=== PATIENT | female | born 1950 | race Caucasian/White ===

== ENCOUNTER 2018-09-10 07:24 | Day surgery (SDC) | payer MEDICARE ==
[2018-09-07 16:42] VITALS: BMI 26.0
[2018-09-10] MEDS ORDERED: Sodium Chloride 0.9% 1,000 ML IV SCH (09:45)
[2018-09-10 11:02] VITALS: TEMP 98
[2018-09-10 11:11] VITALS: BP 126/63; PULSE 63; RESP 16; O2SAT 99
== END 2018-09-10 11:00 | disposition home or self-care (01) ==
LOC: ENDO 07:24
PROVIDERS: ATTEND Specialist
DX: Z12.11 Encounter for screening for malignant neoplasm of colon (principal); K63.5 Polyp of colon; Z86.010 Personal history of colon polyps; K64.8 Other hemorrhoids; E11.9 Type 2 diabetes mellitus without complications
CPT/HCPCS: 45380; 88305; J2001; J7030

== ENCOUNTER 2018-09-17 13:58 | Inpatient (IN) | payer MEDICARE ==
[2018-09-17 13:59] VITALS: BMI 26.0
[2018-09-17] MEDS ORDERED: Morphine 4 mg/ml ISec IVP STA (14:41)
--- NOTE | 2018-09-17 14:50 | ED PDOC ---
Arrival/HPI - General Chief Complaint: Abdominal Pain Time Seen by Provider: 09/17/18 14:14 Historian: Patient - History of Present Illness Narrative History of Present Illness (Text): 09/17/18 14:35 67 year old female, whose past medical history includes allergy to Amoxicillin (causes rashes), Eczema, recent colonoscopy, appendectomy, , diabetes, and kidney stone, who presents to the Emergency department complaining of bloating of stomach and back pain for past 3 days. Patient states she had a colonoscopy done on 09/10/[address] Vargas. Patient notes she has not gone to visit Dr. Vargas again since he asked her to return in 3-4 weeks. Patient states she went to her Insurance Sales Producer this week and blood was found in her urine, but no bacteria. Patient notes urine output changes, nausea and poor appetite. Patient denies any recent falls, fevers, rashes, vaginal discharge, stool changes, or any other complaints. PMD: Charan Vo Time/Duration: > week (Pt notes bloating of stomach and back pains for past 3 days ) Symptom Onset: Sudden Symptom Course: Unchanged Activities at Onset: Light Past Medical History - Provider Review Nursing Documentation Reviewed: Yes - Infectious Disease Hx of Infectious Diseases: None - Reproductive Menopause: Yes - Cardiac Hx Pacemaker: No - Pulmonary Hx Respiratory Disorders: No - Neurological Hx Paralysis: No - HEENT Hx HEENT Disorder: No - Renal Hx Renal Disorder: No Hx Kidney Stones: Yes (6 MM KIDNEY STONE 06-19-16) - Endocrine/Metabolic Hx Endocrine Disorders: Yes Hx Diabetes Mellitus Type 2: Yes - Hematological/Oncological Hx Blood Transfusions: No - Integumentary Hx Dermatological Disorder: No - Musculoskeletal/Rheumatological Hx Musculoskeletal Disorders: Yes - Gastrointestinal Hx Gastrointestinal Disorders: No (APPENDECTOMY) - Genitourinary/Gynecological Hx Genitourinary Disorders: Yes (CEASEREAN X 1) - Psychiatric Hx Psychophysiologic Disorder: No Hx Substance Use: No - Surgical History Hx Appendectomy: Yes Hx Section: Yes Hx Eye Surgery: Yes (FOR GLAUCOMA) - Anesthesia Hx Anesthesia Reactions: No Hx Malignant Hyperthermia: No - Suicidal Assessment Feels Threatened In Home Enviroment: No Family/Social History - Physician Review Nursing Documentation Reviewed: Yes Family/Social History: Unknown Family HX Smoking Status: Never Smoked Hx Alcohol Use: No Hx Substance Use: No Allergies/Home Meds Allergies/Adverse Reactions: Allergies amoxicillin Allergy (Severe, Verified 06/25/16 07:48) ITCHING Home Medications: Home Meds Medication Instructions Recorded Confirmed Ascorbic Acid [Vitamin C] 500 mg PO DAILY 06/30/17 09/10/18 Cyanocobalamin [Vitamin B12 1000 1 tab PO DAILY 06/30/17 09/10/18 mcg Tab] [place]-3 Fatty Acids/Fish Oil [Fish 1 cap PO DAILY 06/30/17 09/10/18 Oil 1,000 mg Capsule] Peg 400/Hypromellose/Glycerin [Eye 1 drop OU BID 06/30/17 09/10/18 Drop Tears] RX: Vitamin E 400 unit PO DAILY 06/30/17 09/10/18 Ubidecarenone [Co Q10] 200 mg PO DAILY 06/30/17 09/10/18 metFORMIN [glucOPHAGE] 500 mg PO DAILY 06/30/17 09/10/18 Review of Systems - Physician Review All systems were reviewed & negative as marked: Yes - Review of Systems Constitutional: Normal. absent: Fevers Eyes: Normal. absent: Vision Changes, Photophobia ENT: Normal. absent: Hearing Changes, Tinnitus Gastrointestinal: Nausea, Appetite Changes, Other (Pt notes abdominal bloating for past 3 days). absent: Normal, Stool Changes Genitourinary Female: absent: Normal, Vaginal Discharge Musculoskeletal: Back Pain (Pt notes back pain for past 3 days). absent: Normal Skin: Normal. absent: Rash Psychiatric: Normal. absent: Anxiety, Depression Physical Exam Vital Signs Reviewed: Yes Vital Signs Temp Pulse Resp BP Pulse Ox 09/17/18 14:19 98.4 F 60 18 149/82 97 Temperature: Afebrile Blood Pressure: Normal Pulse: Regular Respiratory Rate: Normal Appearance: Positive for: Well-Appearing, Non-Toxic, Uncomfortable Pain Distress: Mild Mental Status: Positive for: Alert and Oriented X 3 - Systems Exam Head: Present: Atraumatic, Normocephalic Pupils: Present: PERRL Extroacular Muscles: Present: EOMI Conjunctiva: Present: Normal Mouth: Present: Moist Mucous Membranes Neck: Present: Normal Range of Motion Respiratory/Chest: Present: Clear to Auscultation, Good Air Exchange. No: Respiratory Distress, Accessory Muscle Use Cardiovascular: Present: Regular Rate and Rhythm, Normal S1, S2. No: Murmurs Abdomen: Present: Distention. No: Tenderness Back: Present: Normal Inspection Upper Extremity: Present: Normal Inspection. No: Cyanosis, Edema Lower Extremity: Present: Normal Inspection. No: Edema Neurological: Present: GCS=15, CN II-XII Intact, Speech Normal Skin: Present: Warm, Dry, Normal Color. No: Rashes Psychiatric: Present: Alert, Oriented x 3, Normal Insight, Normal Concentration Medical Decision Making ED Course and Treatment: 09/17/18 14:35 Impression: 67 year old female who presents to the Emergency department complaining of bloating of stomach and back pain for past 3 days. Likely kidney stone vs perf? However abdomen non-ttp and very well appearing. Likely kidney stone given hx of microscopic hematuria, flank pain, abd pain. Will seek CT. Plan: -- CT of Abdomen/Pelvis -- EKG -- Labs -- Morphine -- IV fluids -- Zofran Inj -- Urinalysis -- Reassess and disposition Progress Notes: 09/17/18 17:47 CT of Abdomen/Pelvis reviewed by radiologist, shows: IMPRESSION: 4 x 6 mm obstructing calculus at the distal right ureter near the UVJ with moderate proximal hydroureter and hydronephrosis. 2.5 x 2.3 cm right uterine mass possibly fibroid. Suspected right adnexal cyst. Pelvic ultrasound may be considered for further evaluation if indicated. Additional findings as above. 09/17/18 18:36 Cr unremarkable UA largely unremarkable: no urinary complaints other than microscopic hematuria. Per Dr. Glynn- URO (covering for Dr. Zheng)- we are to admit to uro special education paraeducator Dr. Vargas- MED does not admit to [facility] appreciate consult w/ Dr. Kimberly Sam- URO: to admit to his service and send him CT w/ Face sheet. We are to admit to medicine appreciate consult w/ Dr. Mai Deshpande- MED: to admit to Dr. Hatfield service. Pt in NAD, agreeable to plan. - RAD Interpretation Radiology Orders: 09/17/18 14:37 ABDOMEN & PELVIS [ABD & PELVIS IV CONTRAST ONLY] [CT] Stat - EKG Interpretation EKG Interpretation (Text): 09/17/18 EKG: Ordered, reviewed, and independently interpreted the EKG. Rate : 60 BPM Rhythm : NSR Interpretation : No STEMI Interpreted by ED Physician: Yes Type: 12 lead EKG - Medication Orders Current Medication Orders: Sodium Chloride (Sodium Chloride 0.9%) 1,000 mls @ 100 mls/hr IV .Q10H YOANA Discontinued Medications Morphine Sulfate (Morphine) 4 mg IVP STAT STA Stop: 09/17/18 14:42 Ondansetron HCl (Zofran Inj) 4 mg IVP STAT STA Stop: 09/17/18 14:42 - Scribe Statement The provider has reviewed the documentation as recorded by the Donnaibjimbo Dean All medical record entries made by the Donnaibjimbo were at my direction and personally dictated by me. I have reviewed the chart and agree that the record accurately reflects my personal performance of the history, physical exam, medical decision making, and the department course for this patient. I have also personally directed, reviewed, and agree with the discharge instructions and disposition. Disposition/Present on Arrival - Present on Arrival Any Indicators Present on Arrival: No History of DVT/PE: No History of Uncontrolled Diabetes: No Urinary Catheter: No History of Decub. Ulcer: No History Surgical Site Infection Following: None - Disposition Have Diagnosis and Disposition been Completed?: Yes Diagnosis: Nephrolithiasis Disposition Time: 18:00 Patient Problems: Current Active Problems Problem Status Onset Nephrolithiasis Acute Condition: GOOD
[2018-09-17] MEDS: Sodium Chloride 0.9% 1,000 ML IV SCH (15:10)
[2018-09-17 15:15] LABS: BASO # 0.02 K/mm3 (0.0-2.0); BASO % 0.2 % (0.0-3.0); EOS % 0.2 % (1.5-5.0); GRAN # 9.2 (1.4-6.5); GRAN % 80.1 % (50.0-68.0); HEMOGLOBIN 14.1 g/dL (12.0-16.0); LYMPH # 1.6 (1.2-3.4); LYMPH % 13.9 % (22.0-35.0); MEAN CELL VOLUME 90.4 fl (80.0-105.0); MEAN CORPUSCULAR HEMOGLOBIN 31.3 pg (25.0-35.0); MEAN CORPUSCULAR HGB CONC 34.6 g/dl (31.0-37.0); MEAN PLATELET VOLUME 9.8 fl (7.0-11.0); MONO # 0.6 (0.1-0.6); MONO % 5.6 % (1.0-6.0); RBC 4.5 10^6/uL (3.5-6.1); RED CELL DISTRIBUTION WIDTH 12.7 % (11.5-14.5); WHITE BLOOD COUNT 11.5 10^3/uL (4.5-11.0)
[2018-09-17 15:24] LABS: ALB/GLOB RATIO 1.1 (1.1-1.8); ALBUMIN 4.4 g/dL (3.0-4.8); ALT/SGPT 54 U/L (7-56); AST/SGOT 48 U/L (14-36); BLOOD UREA NITROGEN 18 mg/dL (7-21); CALCIUM 9.8 mg/dL (8.4-10.5); GFR NON-AFRICAN AMERICAN > 60; LIPASE 145 U/L (23-300)
[2018-09-17] MEDS ORDERED: Iohexol 350 MG/100 ML VIAL ONE (16:23)
--- NOTE | 2018-09-17 17:17 | CT ---
Date of service: 09/17/2018 PROCEDURE: CT Abdomen and Pelvis with contrast HISTORY: pain distension, recent colonscopy. hx appy+stone COMPARISON: CT abdomen and pelvis without contrast performed 06/19/16 TECHNIQUE: Contrast dose: 100 mL Omnipaque 350 IV Radiation dose: Total exam DLP = 514.98 mGy-cm. This CT exam was performed using one or more of the following dose reduction techniques: Automated exposure control, adjustment of the mA and/or kV according to patient size, and/or use of iterative reconstruction technique. FINDINGS: LOWER THORAX: Mild bibasilar atelectasis. No visible pleural effusion or pneumothorax. Small hiatal hernia/distal esophageal wall thickening. LIVER: Unremarkable. GALLBLADDER AND BILE DUCTS: Unremarkable. PANCREAS: Unremarkable. SPLEEN: Unremarkable. ADRENALS: Unremarkable. KIDNEYS AND URETERS: The kidneys enhance symmetrically. 4 x 6 mm obstructing calculus at the distal right ureter near the UVJ (series 3, image 146) with moderate proximal hydroureter and hydronephrosis. No left-sided hydronephrosis or obstructing calculus. VASCULATURE: No aortic aneurysm. BOWEL: Stomach is nondistended. Lack of oral contrast limits evaluation for bowel pathology. Bowel loops appear within normal limits of caliber without evidence of obstruction. APPENDIX: The appendix is not identified consistent with history of appendectomy. Surgical clips are noted at the level of the cecum. No secondary signs of acute appendicitis. PERITONEUM: No significant free fluid. No definite free air. LYMPH NODES: No bulky adenopathy identified. BLADDER: Unremarkable. REPRODUCTIVE: The uterus is present. 2.5 x 2.3 cm right uterine mass possibly fibroid. Suspected right adnexal cyst. BONES: Degenerative changes. OTHER FINDINGS: None. IMPRESSION: 4 x 6 mm obstructing calculus at the distal right ureter near the UVJ with moderate proximal hydroureter and hydronephrosis. 2.5 x 2.3 cm right uterine mass possibly fibroid. Suspected right adnexal cyst. Pelvic ultrasound may be considered for further evaluation if indicated. Additional findings as above.
[2018-09-17 17:45] LABS: PH,URINE 7.5 (4.7-8.0); URINE BILIRUBIN NEGATIVE (NEGATIVE); URINE BLOOD SMALL (NEGATIVE); URINE GLUCOSE (UA) 500 mg/dL (NEGATIVE); URINE LEUKOCYTE ESTERASE NEGATIVE Leu/uL (NEGATIVE); URINE PROTEIN NEGATIVE mg/dL (<30 mg/dL); URINE UROBILINOGEN 0.2 E.U./dL (<1 E.U./dL)
[2018-09-17 18:36] LABS: URINE APPEARANCE CLEAR (CLEAR); URINE COLOR YELLOW (YELLOW)
--- NOTE | 2018-09-17 18:36 | CP.PCM.HP ---
<Agusto Burton - Last Filed: 09/17/18 20:14> History of Present Illness - History of Present Illness History of Present Illness: Resident History & Physical for Hospitalist Service Patient is a 67 year old female with past medical history of T2DM and ureteral calculus presenting with chief complaint of urinary urgency that began about 2 weeks prior. She also admits to diffuse abdominal pain that radiates to right side of her back along with nausea and abdominal bloating. She characterizes the pain as a sharp shooting sensation with a severity of +10/10. Of note, patient had a right ureteral calculus previously in 2016 with stent placement. Denies fevers, chills, nausea, vomiting, chest pain, shortness of breath, diarrhea. In ED patient was given 4 mg morphine, 15 mg toradol, 4 mg zofran. PMH: T2DM, ureteral calculus PSH: appendectomy, c-sections SHx: denies alcohol, tobacco, illicit drug use FHx: none Allergies: amoxicillin Home meds: metformin 500 mg daily PMD: Dr. Vargas Present on Admission - Present on Admission Any Indicators Present on Admission: No Review of Systems - Review of Systems All systems: reviewed and no additional remarkable complaints except (as stated in HPI) Past Patient History - Infectious Disease Hx of Infectious Diseases: None - Past Medical History & Family History Past Medical History?: Yes - Past Social History Smoking Status: Never Smoked - CARDIAC Hx Pacemaker: No - PULMONARY Hx Respiratory Disorders: No - NEUROLOGICAL Hx Paralysis: No - HEENT Hx HEENT Problems: No - RENAL Hx Chronic Kidney Disease: No Hx Kidney Stones: Yes (6 MM KIDNEY STONE 06-19-16) - ENDOCRINE/METABOLIC Hx Endocrine Disorders: Yes Hx Diabetes Mellitus Type 2: Yes - HEMATOLOGICAL/ONCOLOGICAL Hx Blood Transfusions: No - INTEGUMENTARY Hx Dermatological Problems: No - MUSCULOSKELETAL/RHEUMATOLOGICAL Hx Musculoskeletal Disorders: Yes - GASTROINTESTINAL Hx Gastrointestinal Disorders: No (APPENDECTOMY) - GENITOURINARY/GYNECOLOGICAL Hx Genitourinary Disorders: Yes (CEASEREAN X 1) - PSYCHIATRIC Hx Psychophysiologic Disorder: No Hx Substance Use: No - SURGICAL HISTORY Hx Appendectomy: Yes Hx Section: Yes Hx Eye Surgery: Yes (FOR GLAUCOMA) - ANESTHESIA Hx Anesthesia Reactions: No Hx Malignant Hyperthermia: No Meds Allergies/Adverse Reactions: Allergies Allergy/AdvReac Type Severity Reaction Status Date / Time amoxicillin Allergy Severe ITCHING Verified 06/25/16 07:48 Physical Exam - Constitutional Appears: Non-toxic, No Acute Distress - Head Exam Head Exam: ATRAUMATIC, NORMOCEPHALIC - Eye Exam Eye Exam: EOMI, Normal appearance, PERRL - ENT Exam ENT Exam: Mucous Membranes Dry - Neck Exam Neck exam: Positive for: Full Rom. Negative for: Lymphadenopathy, Tenderness, Thyromegaly - Respiratory Exam Respiratory Exam: Clear to Auscultation Bilateral, NORMAL BREATHING PATTERN. absent: Accessory Muscle Use, Chest Wall Tenderness, Rales, Rhonchi, Wheezes, Respiratory Distress, Stridor - Cardiovascular Exam Cardiovascular Exam: REGULAR RHYTHM, +S1, +S2. absent: Tachycardia, Systolic Murmur - GI/Abdominal Exam GI & Abdominal Exam: Normal Bowel Sounds, Soft, Tenderness. absent: Rebound, Rigid - Extremities Exam Extremities exam: Positive for: normal capillary refill, pedal pulses present. Negative for: calf tenderness, pedal edema - Back Exam Back exam: absent: CVA tenderness (L), CVA tenderness (R) - Neurological Exam Neurological exam: Alert, CN II-XII Intact, Oriented x3 - Psychiatric Exam Psychiatric exam: Normal Affect, Normal Mood - Skin Skin Exam: Dry, Intact, Normal Color, Warm Results - Vital Signs Recent Vital Signs: Last Vital Signs Temp 98.4 F 09/17/18 14:19 Pulse 60 09/17/18 14:19 Resp 18 09/17/18 14:19 BP 149/82 09/17/18 14:19 Pulse Ox 97 09/17/18 14:19 - Labs Result Diagrams: 09/17/18 15:00 09/17/18 15:00 Labs: Laboratory Results - last 24 hr 09/17/18 09/17/18 15:00 15:00 WBC 11.5 H RBC 4.50 Hgb 14.1 Hct 40.7 MCV 90.4 MCH 31.3 MCHC 34.6 RDW 12.7 Plt Count 288 MPV 9.8 Gran % 80.1 H Lymph % (Auto) 13.9 L [place] % (Auto) 5.6 Eos % (Auto) 0.2 L Baso % (Auto) 0.2 Gran # 9.20 H Lymph # (Auto) 1.6 [place] # (Auto) 0.6 Eos # (Auto) 0.0 Baso # (Auto) 0.02 Sodium 136 Potassium 4.3 Chloride 100 Carbon Dioxide 28 Anion Gap 13 BUN 18 Creatinine 0.7 Est GFR ( Amer) > 60 Est GFR (Non-Af Amer) > 60 Random Glucose 253 H Calcium 9.8 Total Bilirubin 0.4 AST 48 H ALT 54 Alkaline Phosphatase 69 Total Protein 8.3 Albumin 4.4 Globulin 3.9 Albumin/Globulin Ratio 1.1 Lipase 145 Assessment & Plan - Assessment and Plan (Free Text) Assessment: Patient is a 67 year old female with past medical history of T2DM and ureteral calculus presenting with chief complaint of urinary urgency and back pain and was found to have an obstructing right ureteral calculus on CT. Plan: Ureteral calculus - afebrile, positive leukocytosis - UA shows 500 glucose, small blood, 5-10 RBCs - CT abd/pelvis shows 4x6 mm obstructing calculus at right ureter near UVJ with moderate proximal hydroureter and hydronephrosis - Urology consulted. Appreciate recs. - Rocephin 1 gm IV daily - NS @ 100 ccs/hr - Simethicone 80 mg PO daily - Toradol 15 mg IV Q6H PRN - Morphine 4 mg IV Q6H PRN - Zofran 4 mg IV Q4H PRN - BCx, UCx - NPO diet Uterine mass - incidental finding on CT - 2.5 x 2.3 cm mass - consider pelvic ultrasound T2DM - hold metformin - ISS, hypoglycemia protocol Case discussed with Dr. Hector Burton PGY-1 - Date & Time Date: 09/17/18 Time: 18:35 <Marin Young - Last Filed: 09/18/18 06:50> Results - Vital Signs Recent Vital Signs: Last Vital Signs Temp 98.3 F 09/17/18 17:05 Pulse 83 09/17/18 17:05 Resp 18 09/17/18 22:00 BP 140/79 09/17/18 17:05 Pulse Ox 98 09/17/18 17:05 - Labs Result Diagrams: 09/17/18 15:00 09/17/18 15:00 Labs: Laboratory Results - last 24 hr 09/17/18 09/17/18 09/17/18 15:00 15:00 17:42 WBC 11.5 H RBC 4.50 Hgb 14.1 Hct 40.7 MCV 90.4 MCH 31.3 MCHC 34.6 RDW 12.7 Plt Count 288 MPV 9.8 Gran % 80.1 H Lymph % (Auto) 13.9 L [place] % (Auto) 5.6 Eos % (Auto) 0.2 L Baso % (Auto) 0.2 Gran # 9.20 H Lymph # (Auto) 1.6 [place] # (Auto) 0.6 Eos # (Auto) 0.0 Baso # (Auto) 0.02 Sodium 136 Potassium 4.3 Chloride 100 Carbon Dioxide 28 Anion Gap 13 BUN 18 Creatinine 0.7 Est GFR ( Amer) > 60 Est GFR (Non-Af Amer) > 60 POC Glucose (mg/dL) Random Glucose 253 H Calcium 9.8 Total Bilirubin 0.4 AST 48 H ALT 54 Alkaline Phosphatase 69 Total Protein 8.3 Albumin 4.4 Globulin 3.9 Albumin/Globulin Ratio 1.1 Lipase 145 Urine Color Yellow Urine Appearance Clear Urine pH 7.5 Ur Specific [place] 1.015 Urine Protein Negative Urine Glucose (UA) 500 H Urine Ketones Negative Urine Blood Small H Urine Nitrate Negative Urine Bilirubin Negative Urine Urobilinogen 0.2 Ur Leukocyte Esterase Negative Urine RBC 5 - 10 H Urine WBC 1 - 3 Ur Epithelial Cells 0 - 2 Amorphous Sediment Small 09/17/18 09/18/18 23:27 06:41 WBC RBC Hgb Hct MCV MCH MCHC RDW Plt Count MPV Gran % Lymph % (Auto) [place] % (Auto) Eos % (Auto) Baso % (Auto) Gran # Lymph # (Auto) [place] # (Auto) Eos # (Auto) Baso # (Auto) Sodium Potassium Chloride Carbon Dioxide Anion Gap BUN Creatinine Est GFR ( Amer) Est GFR (Non-Af Amer) POC Glucose (mg/dL) 208 H 160 H Random Glucose Calcium Total Bilirubin AST ALT Alkaline Phosphatase Total Protein Albumin Globulin Albumin/Globulin Ratio Lipase Urine Color Urine Appearance Urine pH Ur Specific [place] Urine Protein Urine Glucose (UA) Urine Ketones Urine Blood Urine Nitrate Urine Bilirubin Urine Urobilinogen Ur Leukocyte Esterase Urine RBC Urine WBC Ur Epithelial Cells Amorphous Sediment Attending/Attestation - Attestation I have personally seen and examined this patient.: Yes I have fully participated in the care of the patient.: Yes I have reviewed all pertinent clinical information: Yes
[2018-09-17 18:56] LABS: URINE AMORPHOUS SEDIMENT SMALL /hpf; URINE EPITHELIAL CELLS 0 - 2 /hpf (0-5)
[2018-09-17] MEDS ORDERED: Morphine 4 mg/ml ISec IVP PRN (19:38)
[2018-09-17] MEDS ORDERED: Simethicone 80 mg Chewtab PO PRN (19:45)
[2018-09-17] MEDS ORDERED: Dextrose 50% SYRINGE Inj (50 ml) IV PRN (19:48)
[2018-09-17] MEDS: Insulin Reg-LOW-Coverage SC SCH (23:00)
[2018-09-17] MEDS ORDERED: Pneumococcal 23-Valent Vaccine IM ONE (23:17)
--- NOTE | 2018-09-18 07:02 | CP.PCM.PN ---
Subjective - Date & Time of Evaluation Date of Evaluation: 09/18/18 Time of Evaluation: 07:01 - Subjective Subjective: Resident Progress Note for Hospitalist Service Patient examined at bedside. No acute events overnight. Patient states her pain is well managed at this time. Denies fevers, chills, chest pain, shortness of breath, abdominal pain, diarrhea, dysuria. Patient to receive ureteral stent placement today. Objective - Vital Signs/Intake and Output Vital Signs (last 24 hours): Temp Pulse Resp BP Pulse Ox 98.3 F 83 18 140/79 98 09/17/18 17:05 09/17/18 17:05 09/17/18 22:00 09/17/18 17:05 09/17/18 17:05 - Medications Medications: Current Medications Acetaminophen (Tylenol 325mg Tab) 650 mg PO Q6H PRN PRN Reason: Fever >100.4 F Dextrose (Dextrose 50% Inj) 0 ml IV STAT PRN; Protocol PRN Reason: Hypoglycemia Protocol Sodium Chloride (Sodium Chloride 0.9%) 1,000 mls @ 100 mls/hr IV .Q10H YOANA Last Admin: 09/17/18 15:10 Dose: 100 mls/hr Ceftriaxone Sodium (Rocephin 1 Gram Ivpb) 1 gm in 100 mls @ 100 mls/hr IVPB DAILY YOANA; Protocol Dextrose (Dextrose 5% In Water 1000 Ml) 1,000 mls @ 0 mls/hr IV .Q0M PRN; Protocol PRN Reason: Hypoglycemia Protocol Insulin Human Regular (Humulin R Low) 0 units SC ACHS YOANA; Protocol Ketorolac Tromethamine (Toradol) 15 mg IVP Q6H PRN PRN Reason: Pain, moderate (4-7) Morphine Sulfate (Morphine) 4 mg IVP Q6H PRN PRN Reason: Pain, severe (8-10) Ondansetron HCl (Zofran Inj) 4 mg IVP Q4H PRN PRN Reason: Nausea/Vomiting Simethicone (Mylicon Chew Tab) 80 mg PO PCHS PRN PRN Reason: GI distress - Labs Labs: 09/17/18 15:00 09/17/18 15:00 - Additional Findings Additional findings: - Constitutional Appears: Non-toxic, No Acute Distress - Head Exam Head Exam: ATRAUMATIC, NORMOCEPHALIC - Eye Exam Eye Exam: EOMI, Normal appearance - Respiratory Exam Respiratory Exam: Clear to Auscultation Bilateral, NORMAL BREATHING PATTERN. absent: Accessory Muscle Use, Chest Wall Tenderness, Rales, Rhonchi, Wheezes, Respiratory Distress, Stridor - Cardiovascular Exam Cardiovascular Exam: REGULAR RHYTHM, +S1, +S2. absent: Tachycardia, Systolic Murmur - GI/Abdominal Exam GI & Abdominal Exam: Normal Bowel Sounds, Soft, Tenderness. absent: Rebound, Rigid - Extremities Exam Extremities exam: Positive for: normal capillary refill, pedal pulses present. Negative for: calf tenderness, pedal edema - Back Exam Back exam: absent: CVA tenderness (L), CVA tenderness (R) - Neurological Exam Neurological exam: Alert, CN II-XII Intact, Oriented x3 - Psychiatric Exam Psychiatric exam: Normal Affect, Normal Mood - Skin Skin Exam: Dry, Intact, Normal Color, Warm Assessment and Plan - Assessment and Plan (Free Text) Assessment: Patient is a 67 year old female with past medical history of T2DM and ureteral calculus presenting with chief complaint of urinary urgency and back pain and was found to have an obstructing right ureteral calculus on CT. Plan: Ureteral calculus - afebrile, positive leukocytosis - UA shows 500 glucose, small blood, 5-10 RBCs - CT abd/pelvis shows 4x6 mm obstructing calculus at right ureter near UVJ with moderate proximal hydroureter and hydronephrosis - Urology consulted. Appreciate recs. - Rocephin 1 gm IV daily - NS @ 100 ccs/hr - Simethicone 80 mg PO daily - Toradol 15 mg IV Q6H PRN - Morphine 4 mg IV Q6H PRN - Zofran 4 mg IV Q4H PRN - BCx, UCx - NPO diet Uterine mass - 2.5 x 2.3 cm mass incidental finding on CT - patient states she follows regularly with OB-RESIDENT CARE TECHNICIAN Dr. Deshpande - denies uterine bleeding and lower abdominal pain - patient expresses understanding of out T2DM - hold metformin - ISS, hypoglycemia protocol Case discussed with Dr. Justin Burton PGY-1
[2018-09-18 07:23] LABS: BASO # 0.01 K/mm3 (0.0-2.0); BASO % 0.1 % (0.0-3.0); GRAN # 11.54 (1.4-6.5); GRAN % 79.3 % (50.0-68.0); HEMOGLOBIN 12.5 g/dL (12.0-16.0); LYMPH # 1.5 (1.2-3.4); LYMPH % 10.2 % (22.0-35.0); MEAN CELL VOLUME 90.2 fl (80.0-105.0); MEAN CORPUSCULAR HGB CONC 33.2 g/dl (31.0-37.0); MEAN PLATELET VOLUME 9.8 fl (7.0-11.0); MONO # 1.5 (0.1-0.6); MONO % 10.4 % (1.0-6.0); RBC 4.17 10^6/uL (3.5-6.1); RED CELL DISTRIBUTION WIDTH 12.9 % (11.5-14.5); WHITE BLOOD COUNT 14.6 10^3/uL (4.5-11.0)
[2018-09-18 07:53] LABS: ALB/GLOB RATIO 1.1 (1.1-1.8); ALBUMIN 3.8 g/dL (3.0-4.8); ALT/SGPT 49 U/L (7-56); AST/SGOT 36 U/L (14-36); BLOOD UREA NITROGEN 17 mg/dL (7-21); CALCIUM 8.7 mg/dL (8.4-10.5); GFR NON-AFRICAN AMERICAN 55
--- NOTE | 2018-09-18 09:08 | CARD ---
APPROVED REPORT Date of service: 09/17/2018 EKG Measurement Heart [id number] <Conclusion> Normal sinus rhythm with sinus arrhythmia Normal ECG No change
[2018-09-18] MEDS: Sodium Chloride 0.9% 1,000 ML IV SCH ×2 (09:29→15:10)
[2018-09-18] MEDS: Insulin Reg-LOW-Coverage SC SCH ×3 (09:29→16:05)
[2018-09-18] MEDS ORDERED: cefTRIAXone 1 gm 1 GM/100 ML BAG IVPB SCH (10:00)
--- NOTE | 2018-09-18 10:31 | CP.PCM.APN ---
Subjective - Date & Time of Evaluation Date of Evaluation: 09/18/18 Time of Evaluation: 09:00 - Subjective Subjective: Pt was seen and examined at bedside. She was sleeping but easily arousable. Denies back or abdominal pain. No nausea or vomiting. Objective - Vital Signs/Intake and Output Vital Signs (last 24 hours): Temp Pulse Resp BP Pulse Ox 98.4 F 72 18 108/59 L 90 L 09/18/18 06:00 09/18/18 06:00 09/18/18 06:00 09/18/18 06:00 09/18/18 06:00 Intake and Output: 09/18/18 09/18/18 06:59 18:59 Intake Total 800 Balance 800 - Medications Medications: Current Medications Acetaminophen (Tylenol 325mg Tab) 650 mg PO Q6H PRN PRN Reason: Fever >100.4 F Dextrose (Dextrose 50% Inj) 0 ml IV STAT PRN; Protocol PRN Reason: Hypoglycemia Protocol Sodium Chloride (Sodium Chloride 0.9%) 1,000 mls @ 100 mls/hr IV .Q10H [facility] Last Admin: 09/18/18 09:29 Dose: 100 mls/hr Ceftriaxone Sodium (Rocephin 1 Gram Ivpb) 1 gm in 100 mls @ 100 mls/hr IVPB DAILY [facility]; Protocol Last Admin: 09/18/18 09:37 Dose: 100 mls/hr Dextrose (Dextrose 5% In Water 1000 Ml) 1,000 mls @ 0 mls/hr IV .Q0M PRN; Protocol PRN Reason: Hypoglycemia Protocol Insulin Human Regular (Humulin R Low) 0 units SC ACHS [facility]; Protocol Last Admin: 09/18/18 09:29 Dose: Not Given Ketorolac Tromethamine (Toradol) 15 mg IVP Q6H PRN PRN Reason: Pain, moderate (4-7) Morphine Sulfate (Morphine) 4 mg IVP Q6H PRN PRN Reason: Pain, severe (8-10) Ondansetron HCl (Zofran Inj) 4 mg IVP Q4H PRN PRN Reason: Nausea/Vomiting Simethicone (Mylicon Chew Tab) 80 mg PO PCHS PRN PRN Reason: GI distress - Labs Labs: 09/18/18 06:30 09/18/18 06:30 - Constitutional Appears: Well, No Acute Distress - Head Exam Head Exam: ATRAUMATIC - Eye Exam Eye Exam: Normal appearance - ENT Exam ENT Exam: Normal Exam - Neck Exam Neck Exam: Full ROM - Respiratory Exam Respiratory Exam: Clear to Ausculation Bilateral, NORMAL BREATHING PATTERN - Cardiovascular Exam Cardiovascular Exam: REGULAR RHYTHM, +S1, +S2 - GI/Abdominal Exam GI & Abdominal Exam: Soft, Normal Bowel Sounds - Rectal Exam Rectal Exam: Deferred - Extremities Exam Extremities Exam: Full ROM, Normal Inspection - Neurological Exam Neurological Exam: Alert, Awake, Oriented x3 Assessment and Plan - Assessment and Plan (Free Text) Assessment: Pt is a 67 y.o. female with pmhx of eczema, recent colonoscopy, DM and kidney stones who presented in ED for bloating & back pain x3days and blood in urine. Impressions Abdomen/Pelvis CT 09/17/18 14:37 IMPRESSION: 4 x 6 mm obstructing calculus at the distal right ureter near the UVJ with moderate proximal hydroureter and hydronephrosis. 2.5 x 2.3 cm right uterine mass possibly fibroid. Suspected right adnexal cyst. Pelvic ultrasound may be considered for further evaluation if indicated. Additional findings as above. Plan: NPO for poss procedure w/ Dr. Sam Strain urine as ordered Pending abdominal XR On IV Rocephin Pending urine culture Urology on consult Meds per MAR Will continue to follow
--- NOTE | 2018-09-18 13:06 | RAD ---
Date of service: 09/18/2018 HISTORY: kidney stones COMPARISON: CT 09/17/2018 FINDINGS: BOWEL: Normal. No obstruction. No free air. BONES: Normal. OTHER FINDINGS: The right UVJ stone seen on CT may be faintly visible on the straight AP film. Contrast is seen in the bladder. Contrast is seen in a dilated right renal collecting system. There is persistent enhancement of the right renal parenchyma. IMPRESSION: As above
[2018-09-18] MEDS ORDERED: Iohexol 240 (50 ml) ONE (14:49)
[2018-09-18] MEDS ORDERED: Propofol 10 mg/ml Inj (20 ML) ONE (15:08)
[2018-09-18] MEDS ORDERED: Midazolam 2 MG/2 ML VIAL ONE (15:09)
[2018-09-18] MEDS ORDERED: Iohexol 240 (50 ml) IVP ONE (15:18)
--- NOTE | 2018-09-18 15:33 | CP.PCM.CON ---
Past Patient History - Infectious Disease Hx of Infectious Diseases: None - Past Medical History & Family History Past Medical History?: Yes - Past Social History Smoking Status: Never Smoked - CARDIAC Hx Pacemaker: No - PULMONARY Hx Respiratory Disorders: No - NEUROLOGICAL Hx Paralysis: No - HEENT Hx HEENT Problems: No Hx Glaucoma: Yes - RENAL Hx Chronic Kidney Disease: No Hx Kidney Stones: Yes (6 MM KIDNEY STONE 06-19-16) - ENDOCRINE/METABOLIC Hx Diabetes Mellitus Type 2: Yes - HEMATOLOGICAL/ONCOLOGICAL Hx Blood Transfusions: No - INTEGUMENTARY Hx Dermatological Problems: No - MUSCULOSKELETAL/RHEUMATOLOGICAL Hx Musculoskeletal Disorders: Yes - GASTROINTESTINAL Hx Gastrointestinal Disorders: No (APPENDECTOMY) - GENITOURINARY/GYNECOLOGICAL Hx Genitourinary Disorders: Yes (CEASEREAN X 1) - PSYCHIATRIC Hx Substance Use: No - SURGICAL HISTORY Hx Surgeries: Yes - ANESTHESIA Hx Anesthesia Reactions: No Hx Malignant Hyperthermia: No Meds Allergies/Adverse Reactions: Allergies Allergy/AdvReac Type Severity Reaction Status Date / Time amoxicillin Allergy Severe ITCHING Verified 06/25/16 07:48 - Medications Medications: Current Medications Acetaminophen (Tylenol 325mg Tab) 650 mg PO Q6H PRN PRN Reason: Fever >100.4 F Dextrose (Dextrose 50% Inj) 0 ml IV STAT PRN; Protocol PRN Reason: Hypoglycemia Protocol Sodium Chloride (Sodium Chloride 0.9%) 1,000 mls @ 100 mls/hr IV .Q10H [facility] Last Admin: 09/18/18 15:10 Dose: Not Given Ceftriaxone Sodium (Rocephin 1 Gram Ivpb) 1 gm in 100 mls @ 100 mls/hr IVPB DAILY [facility]; Protocol Last Admin: 09/18/18 09:37 Dose: 100 mls/hr Dextrose (Dextrose 5% In Water 1000 Ml) 1,000 mls @ 0 mls/hr IV .Q0M PRN; Protocol PRN Reason: Hypoglycemia Protocol Insulin Human Regular (Humulin R Low) 0 units SC ACHS [facility]; Protocol Last Admin: 09/18/18 11:28 Dose: Not Given Ketorolac Tromethamine (Toradol) 15 mg IVP Q6H PRN PRN Reason: Pain, moderate (4-7) Morphine Sulfate (Morphine) 4 mg IVP Q6H PRN PRN Reason: Pain, severe (8-10) Ondansetron HCl (Zofran Inj) 4 mg IVP Q4H PRN PRN Reason: Nausea/Vomiting Simethicone (Mylicon Chew Tab) 80 mg PO PCHS PRN PRN Reason: GI distress Results - Vital Signs Recent Vital Signs: Last Vital Signs Temp 98.4 F 09/18/18 14:50 Pulse 61 09/18/18 14:50 Resp 20 09/18/18 14:50 BP 116/64 09/18/18 14:50 Pulse Ox 96 09/18/18 14:50 - Labs Result Diagrams: 09/18/18 06:30 09/18/18 06:30 Labs: Laboratory Results - last 24 hr 09/17/18 09/17/18 09/18/18 17:42 23:27 06:30 WBC 14.6 H D RBC 4.17 Hgb 12.5 Hct 37.6 MCV 90.2 MCH 30.0 MCHC 33.2 RDW 12.9 Plt Count 280 MPV 9.8 Gran % 79.3 H Lymph % (Auto) 10.2 L [place] % (Auto) 10.4 H Eos % (Auto) 0.0 L Baso % (Auto) 0.1 Gran # 11.54 H Lymph # (Auto) 1.5 [place] # (Auto) 1.5 H Eos # (Auto) 0.0 Baso # (Auto) 0.01 Sodium Potassium Chloride Carbon Dioxide Anion Gap BUN Creatinine Est GFR ( Amer) Est GFR (Non-Af Amer) POC Glucose (mg/dL) 208 H Random Glucose Calcium Phosphorus Magnesium Total Bilirubin AST ALT Alkaline Phosphatase Total Protein Albumin Globulin Albumin/Globulin Ratio Urine Color Yellow Urine Appearance Clear Urine pH 7.5 Ur Specific [place] 1.015 Urine Protein Negative Urine Glucose (UA) 500 H Urine Ketones Negative Urine Blood Small H Urine Nitrate Negative Urine Bilirubin Negative Urine Urobilinogen 0.2 Ur Leukocyte Esterase Negative Urine RBC 5 - 10 H Urine WBC 1 - 3 Ur Epithelial Cells 0 - 2 Amorphous Sediment Small 09/18/18 09/18/18 06:30 06:41 WBC RBC Hgb Hct MCV MCH MCHC RDW Plt Count MPV Gran % Lymph % (Auto) [place] % (Auto) Eos % (Auto) Baso % (Auto) Gran # Lymph # (Auto) [place] # (Auto) Eos # (Auto) Baso # (Auto) Sodium 138 Potassium 4.1 Chloride 105 Carbon Dioxide 25 Anion Gap 12 BUN 17 Creatinine 1.0 Est GFR ( Amer) > 60 Est GFR (Non-Af Amer) 55 POC Glucose (mg/dL) 160 H Random Glucose 158 H Calcium 8.7 Phosphorus 3.9 Magnesium 2.0 Total Bilirubin 0.7 AST 36 D ALT 49 Alkaline Phosphatase 57 Total Protein 7.3 Albumin 3.8 Globulin 3.5 Albumin/Globulin Ratio 1.1 Urine Color Urine Appearance Urine pH Ur Specific [place] Urine Protein Urine Glucose (UA) Urine Ketones Urine Blood Urine Nitrate Urine Bilirubin Urine Urobilinogen Ur Leukocyte Esterase Urine RBC Urine WBC Ur Epithelial Cells Amorphous Sediment Assessment & Plan - Assessment and Plan (Free Text) Assessment: IMP: R reanl colic R ureteral calculus Full note tbd Thank you. YS - Date & Time Date: 09/18/18 Time: 14:45
--- NOTE | 2018-09-18 15:35 | PCM.SURG1 ---
Surgeon's Initial Post Op Note - Surgeon's Notes Surgeon: Nani Sam Marine Equipment Sales Engineer: none Type of Anesthesia: General LMA Pre-Operative Diagnosis: R renal colic. R distal ureteral stone Operative Findings: R hydronephrosis Post-Operative Diagnosis: same Operation Performed: cysto. R rtg pyelogram'. insertion of R ureteral stent. EUA Specimen/Specimens Removed: none Estimated Blood Loss: EBL {In ML}: 0 Blood Products Given: N/A Post-Op Condition: Good Date of Surgery/Procedure: 09/18/18 Time of Surgery/Procedure: 15:35
[2018-09-18 15:45] VITALS: RESP 18; TEMP 98; O2SAT 98
[2018-09-18] MEDS ORDERED: Lactated Ringer's 1,000 ML IV SCH (15:45)
--- NOTE | 2018-09-18 16:04 | CP.PCM.DIS ---
<JosephineIvanashawn L - Last Filed: 09/18/18 16:39> Provider - Provider Date of Admission: 09/17/18 18:40 Attending physician: Lawanda Anderson MD Primary care physician: Dr. Vargas Consults: 09/17/18 18:43 Consult [Physician Consult] Routine Comment: Consulting Provider: Kimberly Sam Consulting Physician: Kimberly Sam Reason for Consult: kidney stone Time Spent in preparation of Discharge (in minutes): 45 Diagnosis - Discharge Diagnosis (1) Ureteral stone with hydronephrosis Status: Acute Hospital Course - Lab Results Lab Results: Most Recent Lab Values WBC 14.6 10^3/uL (4.5-11.0) H D 09/18/18 06:30 RBC 4.17 10^6/uL (3.5-6.1) 09/18/18 06:30 Hgb 12.5 g/dL (12.0-16.0) 09/18/18 06:30 Hct 37.6 % (36.0-48.0) 09/18/18 06:30 MCV 90.2 fl (80.0-105.0) 09/18/18 06:30 MCH 30.0 pg (25.0-35.0) 09/18/18 06:30 MCHC 33.2 g/dl (31.0-37.0) 09/18/18 06:30 RDW 12.9 % (11.5-14.5) 09/18/18 06:30 Plt Count 280 10^3/uL (120.0-450.0) 09/18/18 06:30 MPV 9.8 fl (7.0-11.0) 09/18/18 06:30 Gran % 79.3 % (50.0-68.0) H 09/18/18 06:30 Lymph % (Auto) 10.2 % (22.0-35.0) L 09/18/18 06:30 [place] % (Auto) 10.4 % (1.0-6.0) H 09/18/18 06:30 Eos % (Auto) 0.0 % (1.5-5.0) L 09/18/18 06:30 Baso % (Auto) 0.1 % (0.0-3.0) 09/18/18 06:30 Gran # 11.54 (1.4-6.5) H 09/18/18 06:30 Lymph # (Auto) 1.5 (1.2-3.4) 09/18/18 06:30 [place] # (Auto) 1.5 (0.1-0.6) H 09/18/18 06:30 Eos # (Auto) 0.0 (0.0-0.7) 09/18/18 06:30 Baso # (Auto) 0.01 K/mm3 (0.0-2.0) 09/18/18 06:30 Sodium 138 mmol/L (132-148) 09/18/18 06:30 Potassium 4.1 mmol/L (3.6-5.0) 09/18/18 06:30 Chloride 105 mmol/L (98-107) 09/18/18 06:30 Carbon Dioxide 25 mmol/L (21-33) 09/18/18 06:30 Anion Gap 12 (10-20) 09/18/18 06:30 BUN 17 mg/dL (7-21) 09/18/18 06:30 Creatinine 1.0 mg/dl (0.7-1.2) 09/18/18 06:30 Est GFR ( Amer) > 60 09/18/18 06:30 Est GFR (Non-Af Amer) 55 09/18/18 06:30 POC Glucose (mg/dL) 160 mg/dL (65-110) H 09/18/18 06:41 Random Glucose 158 mg/dL (70-110) H 09/18/18 06:30 Calcium 8.7 mg/dL (8.4-10.5) 09/18/18 06:30 Phosphorus 3.9 mg/dL (2.5-4.5) 09/18/18 06:30 Magnesium 2.0 mg/dL (1.7-2.2) 09/18/18 06:30 Total Bilirubin 0.7 mg/dL (0.2-1.3) 09/18/18 06:30 AST 36 U/L (14-36) D 09/18/18 06:30 ALT 49 U/L (7-56) 09/18/18 06:30 Alkaline Phosphatase 57 U/L (38-126) 09/18/18 06:30 Total Protein 7.3 g/dL (5.8-8.3) 09/18/18 06:30 Albumin 3.8 g/dL (3.0-4.8) 09/18/18 06:30 Globulin 3.5 gm/dL 09/18/18 06:30 Albumin/Globulin Ratio 1.1 (1.1-1.8) 09/18/18 06:30 Lipase 145 U/L (23-300) 09/17/18 15:00 Urine Color Yellow (YELLOW) 09/17/18 17:42 Urine Appearance Clear (CLEAR) 09/17/18 17:42 Urine pH 7.5 (4.7-8.0) 09/17/18 17:42 Ur Specific [place] 1.015 (1.005-1.035) 09/17/18 17:42 Urine Protein Negative mg/dL (<30 mg/dL) 09/17/18 17:42 Urine Glucose (UA) 500 mg/dL (NEGATIVE) H 09/17/18 17:42 Urine Ketones Negative mg/dL (NEGATIVE) 09/17/18 17:42 Urine Blood Small (NEGATIVE) H 09/17/18 17:42 Urine Nitrate Negative (NEGATIVE) 09/17/18 17:42 Urine Bilirubin Negative (NEGATIVE) 09/17/18 17:42 Urine Urobilinogen 0.2 E.U./dL (<1 E.U./dL) 09/17/18 17:42 Ur Leukocyte Esterase Negative Alisia/uL (NEGATIVE) 09/17/18 17:42 Urine RBC 5 - 10 /hpf (0-2) H 09/17/18 17:42 Urine WBC 1 - 3 /hpf (0-6) 09/17/18 17:42 Ur Epithelial Cells 0 - 2 /hpf (0-5) 09/17/18 17:42 Amorphous Sediment Small /hpf (NONE) 09/17/18 17:42 - Hospital Course Hospital Course: On admission: Patient is a 67 year old female with past medical history of T2DM and ureteral calculus presenting with chief complaint of urinary urgency that began about 2 weeks prior. She also admits to diffuse abdominal pain that radiates to right side of her back along with nausea and abdominal bloating. She characterizes the pain as a sharp shooting sensation with a severity of +10/10. Of note, patient had a right ureteral calculus previously in 2016 with stent placement. Denies fevers, chills, nausea, vomiting, chest pain, shortness of breath, diarrhea. During hospital stay: In ED patient was given 4 mg morphine, 15 mg toradol, [address] abd/pelvis showed 4x6 mm obstructing calculus at distal right ureter near UVJ with moderate proximal hydroureter and hydronephrosis, 2.5x2.3 cm right uterine mass possibly fibroid. Suspected right adnexal cyst. Patient was kept NPO, given rocephin. Patient underwent cystoscopy, retrograde pyelogram with insertion of right ureteral stent. Patient was medically optimized for discharge. Please see EMR for full summary. - Date & Time of H&P Date of H&P: 09/17/18 Time of H&P: 18:34 Discharge Exam - Additional Findings Additional findings: - Constitutional Appears: Non-toxic, No Acute Distress - Head Exam Head Exam: ATRAUMATIC, NORMOCEPHALIC - Respiratory Exam Respiratory Exam: Clear to Auscultation Bilateral, NORMAL BREATHING PATTERN. absent: Accessory Muscle Use, Chest Wall Tenderness, Rales, Rhonchi, Wheezes, Respiratory Distress, Stridor - Cardiovascular Exam Cardiovascular Exam: REGULAR RHYTHM, +S1, +S2. absent: Tachycardia, Systolic Murmur - GI/Abdominal Exam GI & Abdominal Exam: Normal Bowel Sounds, Soft, Tenderness. absent: Rebound, Rigid - Extremities Exam Extremities exam: Positive for: normal capillary refill, pedal pulses present. Negative for: calf tenderness, pedal edema - Back Exam Back exam: absent: CVA tenderness (L), CVA tenderness (R) - Neurological Exam Neurological exam: Alert, CN II-XII Intact, Oriented x3 - Psychiatric Exam Psychiatric exam: Normal Affect, Normal Mood - Skin Skin Exam: Dry, Intact, Normal Color, Warm Discharge Plan - Follow Up Plan Condition: GOOD Disposition: HOME/ ROUTINE Patient education suggested?: Yes Instructions: Cystoscopy, Kidney Stones (DC), Renal Colic (DC), Hydronephrosis, Adult (DC), Flu Vaccine, Ureteral Stent (DC) Additional Instructions: Please follow up with your primary doctor within one week. Also followup with urologist Dr. Kimberly Sam within one week. Also follow up with your OB-[facility] P[facility] Dr. Deshpande regarding your incidental finding of uterine mass. You have been provided prescriptions for medications, please take these as prescribed. Also resume your home medications. Return to ED if symptoms return or worsen. Referrals: Kimberly Sam MD [Staff Provider] - <Lawanda Anderson - Last Filed: 09/18/18 17:18> Provider - Provider Date of Admission: 09/17/18 18:40 Attending physician: Lawanda Anderson MD Consults: 09/17/18 18:43 Consult [Physician Consult] Routine Comment: Consulting Provider: Kimberly Sam Consulting Physician: Kimberly Sam Reason for Consult: kidney stone [facility] Course - Lab Results Lab Results: Most Recent Lab Values WBC 14.6 10^3/uL (4.5-11.0) H D 09/18/18 06:30 RBC 4.17 10^6/uL (3.5-6.1) 09/18/18 06:30 Hgb 12.5 g/dL (12.0-16.0) 09/18/18 06:30 Hct 37.6 % (36.0-48.0) 09/18/18 06:30 MCV 90.2 fl (80.0-105.0) 09/18/18 06:30 MCH 30.0 pg (25.0-35.0) 09/18/18 06:30 MCHC 33.2 g/dl (31.0-37.0) 09/18/18 06:30 RDW 12.9 % (11.5-14.5) 09/18/18 06:30 Plt Count 280 10^3/uL (120.0-450.0) 09/18/18 06:30 MPV 9.8 fl (7.0-11.0) 09/18/18 06:30 Gran % 79.3 % (50.0-68.0) H 09/18/18 06:30 Lymph % (Auto) 10.2 % (22.0-35.0) L 09/18/18 06:30 [place] % (Auto) 10.4 % (1.0-6.0) H 09/18/18 06:30 Eos % (Auto) 0.0 % (1.5-5.0) L 09/18/18 06:30 Baso % (Auto) 0.1 % (0.0-3.0) 09/18/18 06:30 Gran # 11.54 (1.4-6.5) H 09/18/18 06:30 Lymph # (Auto) 1.5 (1.2-3.4) 09/18/18 06:30 [place] # (Auto) 1.5 (0.1-0.6) H 09/18/18 06:30 Eos # (Auto) 0.0 (0.0-0.7) 09/18/18 06:30 Baso # (Auto) 0.01 K/mm3 (0.0-2.0) 09/18/18 06:30 Sodium 138 mmol/L (132-148) 09/18/18 06:30 Potassium 4.1 mmol/L (3.6-5.0) 09/18/18 06:30 Chloride 105 mmol/L (98-107) 09/18/18 06:30 Carbon Dioxide 25 mmol/L (21-33) 09/18/18 06:30 Anion Gap 12 (10-20) 09/18/18 06:30 BUN 17 mg/dL (7-21) 09/18/18 06:30 Creatinine 1.0 mg/dl (0.7-1.2) 09/18/18 06:30 Est GFR ( Amer) > 60 09/18/18 06:30 Est GFR (Non-Af Amer) 55 09/18/18 06:30 POC Glucose (mg/dL) 160 mg/dL (65-110) H 09/18/18 06:41 Random Glucose 158 mg/dL (70-110) H 09/18/18 06:30 Calcium 8.7 mg/dL (8.4-10.5) 09/18/18 06:30 Phosphorus 3.9 mg/dL (2.5-4.5) 09/18/18 06:30 Magnesium 2.0 mg/dL (1.7-2.2) 09/18/18 06:30 Total Bilirubin 0.7 mg/dL (0.2-1.3) 09/18/18 06:30 AST 36 U/L (14-36) D 09/18/18 06:30 ALT 49 U/L (7-56) 09/18/18 06:30 Alkaline Phosphatase 57 U/L (38-126) 09/18/18 06:30 Total Protein 7.3 g/dL (5.8-8.3) 09/18/18 06:30 Albumin 3.8 g/dL (3.0-4.8) 09/18/18 06:30 Globulin 3.5 gm/dL 09/18/18 06:30 Albumin/Globulin Ratio 1.1 (1.1-1.8) 09/18/18 06:30 Lipase 145 U/L (23-300) 09/17/18 15:00 Urine Color Yellow (YELLOW) 09/17/18 17:42 Urine Appearance Clear (CLEAR) 09/17/18 17:42 Urine pH 7.5 (4.7-8.0) 09/17/18 17:42 Ur Specific [place] 1.015 (1.005-1.035) 09/17/18 17:42 Urine Protein Negative mg/dL (<30 mg/dL) 09/17/18 17:42 Urine Glucose (UA) 500 mg/dL (NEGATIVE) H 09/17/18 17:42 Urine Ketones Negative mg/dL (NEGATIVE) 09/17/18 17:42 Urine Blood Small (NEGATIVE) H 09/17/18 17:42 Urine Nitrate Negative (NEGATIVE) 09/17/18 17:42 Urine Bilirubin Negative (NEGATIVE) 09/17/18 17:42 Urine Urobilinogen 0.2 E.U./dL (<1 E.U./dL) 09/17/18 17:42 Ur Leukocyte Esterase Negative [place]/uL (NEGATIVE) 09/17/18 17:42 Urine RBC 5 - 10 /hpf (0-2) H 09/17/18 17:42 Urine WBC 1 - 3 /hpf (0-6) 09/17/18 17:42 Ur Epithelial Cells 0 - 2 /hpf (0-5) 09/17/18 17:42 Amorphous Sediment Small /hpf (NONE) 09/17/18 17:42 Attending/Attestation - Attestation I have personally seen and examined this patient.: Yes I have fully participated in the care of the patient.: Yes I have reviewed all pertinent clinical information, including history, physical exam and plan: Yes Notes (Text): 09/18/18 17:05 67 year old female with past medical history of diabetes who presented with complaint of right flank pain. She was found to have 4 x 6 mm obstructing calculus at the distal right ureter near UVJ with moderate proximal hydroureter and hydronephrosis. She was seen by urology and underwent cystoscopy with retrograde pyelogram and right ureteral stent placement. On CT scan she was also found to have 2.5 x 2.3 cm right uterine mass, possible fibroid. Findings were discussed with patient with recommendation to follow up with hydro generation manager for ultrasound evaluation. Patient has leukocytosis, likely reactive. UA not suggestive of UTI and patient if afebrile, nontoxic. Patient is discharged home to follow up with pmd. Follow up with urology and gynecology. Hold metformin for 48-72 hrs. Lawanda Anderson MD Hospitalist.
[2018-09-18 16:22] VITALS: BP 112/51; PULSE 64
--- NOTE | 2018-09-19 11:40 | RAD ---
Date of service: 09/18/2018 PROCEDURE: Retrograde and stent placement HISTORY: HYDRONEPHROSIS / RETROGRADE PYELOGRAM / STENT INSERTION / (RIGHT) COMPARISON: None TECHNIQUE: Standard protocol for this study/examination. FINDINGS: Total fluoroscopic time (continuous mode) utilized during the procedure 18.4 seconds. Total exam DLP: 0.97 (mGy). IMPRESSION: Less than 1 hr fluoroscopic assistance provided during performance of the procedure.
--- NOTE | 2018-09-21 13:09 | OP ---
PROCEDURE DATE: 09/18/2018 UROLOGY OPERATIVE NOTE PREOPERATIVE DIAGNOSIS: Right renal colic. POSTOPERATIVE DIAGNOSES: Right renal colic and right hydronephrosis. PROCEDURE: Cystoscopy, right ureteral catheterization. Right retrograde pyelogram, insertion of right ureteral stent. Exam under anesthesia. SURGEON: Kimberly Sam MD DESCRIPTION OF PROCEDURE: The patient was placed in lithotomy position. Procedure was performed under video endoscopic control as well as under fluoroscopic control. Anesthesia was provided by the anesthesiologist. A #22[place]izen [place] cystoscope sheath was introduced with obturator. Urine sent for bacteriologic examination. Urethra and bladder were inspected with 30-degree lens. FINDINGS: The urethral caliber was normal. There was no bladder tumor. There was no bladder stone. There was mild inflammation of bladder mucosa. There was no bladder diverticulum. The ureteral orifices were normal in position and shape. The 0.035-inch guidewire was inserted into the right ureteral orifice. The guidewire was advanced up to the level of the kidney in an atraumatic fashion. A #6 [place] ureteral catheter was inserted over the guidewire. There was a tactile sensation of obstruction within the distal ureter. The open ended catheter inserted up to the level of the kidney. The guidewire was removed. There was a brisk hydronephrotic flow of clear urine from the kidney. Iodinated contrast material was instilled. There was known to be moderate hydronephrosis with moderate calyceal dilation and clubbing and dilation of the renal pelvis. The guidewire was reinserted into the open ended catheter up to the level of the kidney. The open ended catheter was removed. A #6 [place] Multilink catheter inserted over the guidewire. Proper stent positioning was confirmed with fluoroscopy and endoscopy. The guidewire was removed and stent was left in place. Lidocaine jelly instilled per urethra for postoperative analgesia. Exam under anesthesia was performed. There was no abnormal pelvic mass fixation or induration. There was no adnexal mass to palpation. The uterus was palpable and mobile. The patient was returned to the supine position. The patient tolerated the procedure without complication. Kimberly Sam MD
--- NOTE | 2018-09-21 16:44 | CON ---
UROLOGY CONSULTATION DATE: 09/21/2018 HISTORY OF PRESENT ILLNESS: Mrs. Marianne Young is a 67-year-old female with right flank pain and right lower quadrant pain. The patient presents with a several day history of progressive right flank pain. The patient presented to emergency room. She required parenteral analgesics. The patient has had nausea. No fever. No hematuria. The patient had previous vomiting. The patient underwent CT scan which demonstrated a 4 x 6 mm distal right ureteral stone with slight hydronephrosis. The patient has history of previous urolithiasis. The patient reports that she underwent previous treatments for stone, possible laser treatment approximately 2 years ago. The patient is on previous stone analysis. The patient voids with good urinary stream and good control. The patient lives alone. PAST MEDICAL HISTORY: Significant for history of hypertension. No history of diabetes. There has been no recent fever or rigors. The patient has history of previous obstetrics care for childbirth. 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 She lives with a child. The patient does not smoke. The patient reports no chest pain. No blackout, seizure, or strokes. The patient has normal appetite. No recent weight loss. PHYSICAL EXAMINATION: GENERAL: The patient is a well-developed, well-nourished female appearing her stated age. The patient is awake and alert. ABDOMEN: Soft, nontender and nondistended. No mass or organomegaly. BACK: No CVA tenderness. LABORATORY DATA: Reviewed, see attached reports. IMPRESSION: Right renal colic. Right distal ureteral stone. The patient is advised regarding options of therapy for the stone. Possible conservative management. We will expect the stone passage. Possible stent insertion. Possible shockwave lithotripsy. Possible ureteroscopic laser lithotripsy. Further therapy to follow according to the patient's clinical course. . The case has been discussed with the nursing staff as well as female residents there as well as with the patient. The patient is also advised regarding the temporary nature of the stent which needs to be removed following stone treatment. Kimberly Sam MD
== END 2018-09-18 18:17 | disposition home or self-care (01) | DRG 661 ==
LOC: ED 13:58 → ERH 18:40 → 5RSO 21:44
PROVIDERS: ADMIT Internal Medicine; ATTEND Internal Medicine
PROC: BT1D1ZZ Fluoroscopy of Right Kidney, Ureter and Bladder using Low Osmolar Contrast (ICD-10-PCS; 2018-09-18)
PROC: 0T768DZ Dilation of Right Ureter with Intraluminal Device, Via Natural or Artificial Opening Endoscopic (ICD-10-PCS; principal; 2018-09-18 17:00)
DX: N13.2 Hydronephrosis with renal and ureteral calculous obstruction (principal); I10 Essential (primary) hypertension; E11.9 Type 2 diabetes mellitus without complications; Z79.84 Long term (current) use of oral hypoglycemic drugs; Z88.0 Allergy status to penicillin